=== PATIENT | female | born 1975 | race Caucasian/White ===

== ENCOUNTER 2021-04-26 23:55 | Emergency (ER) | payer MEDICAID ==
[~2021-04-26] VITALS: Ht 157.5 cm; Wt 90.7 kg
[2021-04-27 00:02] VITALS: BP 145/98
--- NOTE | 2021-04-27 00:02 | NUR ---
TO BED AMBULATORY
--- NOTE | 2021-04-27 00:05 | NUR ---
PT. IS A 46 Y/O FEMALE WHO CAME TO ER WITH C/O OF LOWER ABDOMINAL PAIN THAT RADIATES TO LOWER BACK. SHE RATES HER PAIN 10/10 ON THE PAIN SCALE. PT. STATES THAT IT HAS STARTED 3 WEEKS AGO AND ON APRIL 09, 2021 TO APRIL 15, 2021 SHE WAS ADMITTED TO [facility] FOR DIAGNOSIS OF OVARIAN CYSTS AND UTI. PT. IS ONLY FRISIAN-SPEAKING. SKIN IS PINK/WARM/DRY; AAOX4 WITH EVEN AND STEADY GAIT; HR EVEN AND REGULAR; PT DENIES ANY FEVER, CP, SOB, OR COUGH AT THIS TIME; PATIENT POSITIONED FOR COMFORT; HOB ELEVATED; BEDRAILS UP X2; BED DOWN. ER MD MADE AWARE OF PT STATUS. PMH: HYPERLIPIDEMIA, HTN, DM ALLERGIES: NKA
[2021-04-27] MEDS ORDERED: NACL 0.9% 1,000 ML IV ONE (00:25)
[2021-04-27] MEDS ORDERED: KETOROLAC 30 MG/ML VIAL IVP ONE (00:25)
[2021-04-27] MEDS ORDERED: ONDANSETRON 4 MG/2 ML VIAL IVP ONE (00:25)
--- NOTE | 2021-04-27 01:00 | NUR ---
PT. TAKEN TO CT VIA WHEELCHAIR.
[2021-04-27 01:01] LABS: BASOPHILS % (AUTO) 0.3 % (0.0-2.0); EOSINOPHILS # (AUTO) 0.2 K/uL (0-0.4); EOSINOPHILS % (AUTO) 1.6 % (0.0-4.0); HEMATOCRIT 37.7 % (36-48); HEMOGLOBIN 12.5 g/dL (12.0-16.0); LYMPHOCYTES # (AUTO) 3.7 K/uL (2.5-16.5); LYMPHOCYTES % (AUTO) 38.5 % (20.5-51.1); MEAN CORPUSCULAR HEMOGLOBIN 26 pg (27-31); MEAN CORPUSCULAR HGB CONC 33 g/dL (33-37); MONOCYTES # (AUTO) 1.2 K/uL (0.8-1.0); MONOCYTES % (AUTO) 12.5 % (1.7-9.3); NEUTROPHILS # (AUTO) 4.6 K/uL (1.8-7.7); NEUTROPHILS % (AUTO) 47.1 % (42.2-75.2); PLATELET COUNT (AUTO) 474 K/uL (140-450); RED BLOOD CELL COUNT(AUTO) 4.77 MIL/uL (4.20-5.40); RED CELL DISTRIBUTION WIDTH 17.2 % (11.6-13.7); WHITE BLOOD COUNT (AUTO) 9.7 K/uL (4.8-10.8)
[2021-04-27 01:03] LABS: ANION GAP 13.9 (8-16); CARBON DIOXIDE 25.1 mmol/L (21-32); CREATININE 0.6 mg/dL (0.6-1.3)
[2021-04-27 01:09] LABS: ALBUMIN 3.6 g/dL (3.4-5.0); TOTAL BILIRUBIN 0.4 mg/dL (0.0-1.0)
[2021-04-27 01:27] LABS: APPEARANCE,URINE CLEAR (CLEAR); BILIRUBIN,URINE NEGATIVE (NEGATIVE); BLOOD, URINE 3+ (NEGATIVE); COLOR,URINE YELLOW (YELLOW); LEUKOCYTE ESTERASE ,URINE TRACE (NEGATIVE); NITRITE, URINE NEGATIVE (NEGATIVE); PH,URINE 7.5 (5.0-9.0); UGLUCOSE TRACE (NEGATIVE)
[2021-04-27 01:32] LABS: RBC,URINE 11-20 (MOD) /HPF (0-5)
--- NOTE | 2021-04-27 02:40 | NUR ---
PT. RESTING COMFORTABLY AT BEDSIDE, ACCOMPANIED BY . SHE VOICES NO COMPLAINTS.
[2021-04-27] MEDS ORDERED: MORPHINE SULFATE 4 MG/ML SYR IVP ONE (03:30)
[2021-04-27] MEDS ORDERED: cefTRIAXone 1,000 MG VIAL ONE (03:40)
[2021-04-27] MEDS ORDERED: NAPR-1003 PO (03:50)
[2021-04-27] MEDS ORDERED: ONDA-24 SL (03:50)
[2021-04-27] MEDS ORDERED: ACET-8386 PO (03:50)
[2021-04-27] MEDS ORDERED: CEPH-588 PO (03:50)
[2021-04-27 05:02] VITALS: BP 126/67
--- NOTE | 2021-04-27 05:02 | NUR ---
Patient discharged with v/s stable. Written and verbal after care instructions given and explained. Patient alert, oriented and verbalized understanding of instructions. Ambulatory with steady gait. All questions addressed prior to discharge. Patient advised to follow up with PMD. Rx of HYDROCODONE/ACETAMINOPHEN, CEPHALEXIN, NAPROXEN AND ONDANSETRON given. Patient educated on indication of medication including possible reaction and side effects. Opportunity to ask questions provided and answered.
== END 2021-04-27 05:02 | disposition home or self-care (01) ==
LOC: MED 23:55
DX: R10.32 Left lower quadrant pain (principal); E87.1 Hypo-osmolality and hyponatremia; E11.65 Type 2 diabetes mellitus with hyperglycemia; N39.0 Urinary tract infection, site not specified; E11.9 Type 2 diabetes mellitus without complications; I10 Essential (primary) hypertension; E78.5 Hyperlipidemia, unspecified
CPT/HCPCS: 36415; 74176; 76856; 80053; 81001; 81025; 85025; 87086; 96361; 96365; 96375; 99285; J0696; J1885; J2270; J2405; J7030

== ENCOUNTER 2021-04-28 15:43 | Emergency (ER) | payer MEDICAID ==
[~2021-04-28] VITALS: Ht 157.5 cm; Wt 90.7 kg
[~2021-04-28 15:43] MED LIST: ACET-8386 PO; CEPH-588 PO; NAPR-1003 PO; ONDA-24 SL
[2021-04-28 15:51] VITALS: BP 161/83
--- NOTE | 2021-04-28 16:10 | NUR ---
46 Y/O FEMALE C/O LLQ ABDOMINAL PAIN, NAUSEA X 3 WEEKS. SEEN HERE 04/27/21 SAME S/S. ABD SOFT NON TENDER. PT STATES 09/04 PAIN. PMH: DM, HTN, HLD, OVARIAN CYST NKA
--- NOTE | 2021-04-28 16:10 | NUR ---
DR KESSLER AT BEDSIDE EXAMINING PT
[2021-04-28 17:28] LABS: APPEARANCE,URINE HAZY (CLEAR); BILIRUBIN,URINE NEGATIVE (NEGATIVE); BLOOD, URINE 3+ (NEGATIVE); COLOR,URINE YELLOW (YELLOW); LEUKOCYTE ESTERASE ,URINE 1+ (NEGATIVE); NITRITE, URINE NEGATIVE (NEGATIVE); PH,URINE 7.5 (5.0-9.0); UGLUCOSE NEGATIVE (NEGATIVE)
[2021-04-28 18:13] VITALS: BP 161/83
--- NOTE | 2021-04-28 18:13 | NUR ---
Patient discharged with v/s stable. Written and verbal after care instructions given and explained. Patient verbalized understanding. Ambulatory with steady gait. All questions addressed prior to discharge. Advised to follow up with PMD.
[2021-04-28 18:47] LABS: RBC,URINE 20-50 /HPF (0-5)
--- NOTE | 2021-05-01 10:18 | NUR ---
LATE ENTRY---Culture results received from lab. Results shown to Dr. Ndiaye . No new orders needed at this time. Treatment appropriate. Copy placed in C&S folder.
== END 2021-04-28 18:16 | disposition home or self-care (01) ==
LOC: MED 15:43
DX: R10.2 Pelvic and perineal pain (principal); E11.9 Type 2 diabetes mellitus without complications; I10 Essential (primary) hypertension; E78.5 Hyperlipidemia, unspecified; E66.01 Morbid (severe) obesity due to excess calories; Z68.36 Body mass index [BMI] 36.0-36.9, adult; Z79.899 Other long term (current) drug therapy
CPT/HCPCS: 81001; 81025; 87086; 99283

== ENCOUNTER 2021-08-30 19:23 | Emergency (ER) | payer MEDICAID ==
[~2021-08-30] VITALS: Ht 157.5 cm; Wt 86.2 kg
[2021-08-30 19:35] VITALS: BP 183/90
--- NOTE | 2021-08-30 19:38 | NUR ---
to lobby a/w bed ambulatory
--- NOTE | 2021-08-31 00:08 | NUR ---
FIRST CALL FOR PT IN LOBBY AND OUTSIDE BY DR. HERMOSILLO WITH NO ANSWER. WILL REATTEMPT.
--- NOTE | 2021-08-31 01:09 | NUR ---
PT CALLED FOR SECOND TIME IN LOBBY AND OUTSIDE WITH NO ANSWER. PATIENT LEFT WITHOUT BEING SEEN BY DR. HERMOSILLO. NO FURTHER CARE PROVIDED FOR PATIENT.
== END 2021-08-31 00:08 | disposition left against medical advice (07) ==
LOC: MED 19:23
DX: Z53.21 Procedure and treatment not carried out due to patient leaving prior to being seen by health care provider (principal)